=== PATIENT | male | born 1985 | race Caucasian/White ===

== ENCOUNTER 2018-10-26 09:15 | Outpatient (CLI) | payer OTHER ==
[~2018-10-26 09:15] MED LIST: INTESTINEX1 CA1 PO
== END 2018-10-26 09:20 | disposition home or self-care (01) ==
LOC: LAB 09:15
DX: R10.10 Upper abdominal pain, unspecified (principal); Z51.81 Encounter for therapeutic drug level monitoring

== ENCOUNTER 2018-10-26 12:07 | Outpatient (CLI) | payer OTHER | END 2018-10-26 12:13 | disposition home or self-care (01) | LOC: TOM 12:07 | DX: R10.84 Generalized abdominal pain (principal); R10.2 Pelvic and perineal pain ==